=== PATIENT | male | born 1965 | race Caucasian/White ===

== ENCOUNTER → 2017-08-20 | Outpatient (REF) | payer BC, OTHER ==
[2017-08-23 00:06] LABS: Lyme Disease IgG/IgM Antibodie <0.91 ISR (0.00-0.90); Lyme Disease IgM Ab Quantitati <0.80 index (0.00-0.79)
== END ==
LOC: M LAB REF 16:09
DX: G51.0 Bell's palsy (principal)
CPT/HCPCS: 86617

== ENCOUNTER → 2018-01-14 | Outpatient (CLI) | payer BC, OTHER | LOC: M RAD 10:57 | DX: T15.01XA Foreign body in cornea, right eye, initial encounter (principal); W18.30XA Fall on same level, unspecified, initial encounter; Y92.009 Unspecified place in unspecified non-institutional (private) residence as the place of occurrence of the external cause | CPT/HCPCS: 70030 ==

== ENCOUNTER → 2018-08-29 | Outpatient (REF) | payer BC, OTHER ==
[2018-08-31 08:06] LABS: LDL DIRECT 64 mg/dL (0-99)
== END ==
LOC: M LAB REF 16:45
PROVIDERS: ATTEND Nurse Practitioner Adult Health
DX: E78.00 Pure hypercholesterolemia, unspecified (principal)

== ENCOUNTER → 2019-05-05 | Outpatient (REF) | payer BC, OTHER | LOC: M LAB REF 12:40 | PROVIDERS: ATTEND Nurse Practitioner Adult Health | DX: E29.1 Testicular hypofunction (principal) ==

== ENCOUNTER → 2019-08-05 | Outpatient (REF) | payer BC, OTHER ==
[2019-08-09 00:08] LABS: TESTOSTERONE FREE (DIRECT) 11.1 pg/mL (7.2-24.0)
== END ==
LOC: M LAB REF 12:53
PROVIDERS: ATTEND Nurse Practitioner Adult Health
DX: E29.1 Testicular hypofunction (principal)

== ENCOUNTER → 2020-10-05 | Outpatient (REF) | payer BC, OTHER ==
[2020-10-06 17:06] LABS: TESTOSTERONE FREE (DIRECT) 11.4 pg/mL (7.2-24.0)
== END ==
LOC: M LAB REF 12:06
PROVIDERS: ATTEND Nurse Practitioner Adult Health
DX: N52.9 Male erectile dysfunction, unspecified (principal)

== ENCOUNTER → 2021-04-12 | Outpatient (REF) | payer BC, OTHER ==
[2021-04-14 20:07] LABS: TESTOSTERONE FREE (DIRECT) 9.2 pg/mL (7.2-24.0)
== END ==
LOC: M LAB REF 16:39
PROVIDERS: ATTEND Nurse Practitioner Adult Health
DX: E29.1 Testicular hypofunction (principal)

== ENCOUNTER → 2022-02-01 | Outpatient (REF) | payer BC, OTHER | LOC: M LAB REF 16:08 | PROVIDERS: ATTEND Nurse Practitioner Adult Health | DX: E29.1 Testicular hypofunction (principal) ==

== ENCOUNTER → 2023-05-16 | Outpatient (CLI) | payer BC ==
[~2023-05-16] MED LIST: AMLO1TAB25 PO; ATOR40TA75 PO; ENAL1TAB52 PO; FINE20TA PO; FLUO20CA22 PO; HYDR-3490 PO; INSU100I24 SQ; METF-838 PO; METO1TAB33 PO; OMEP-173 PO; POTA-151 PO; TRES1INJ SQ; TRUL0.5I SQ
== END ==
LOC: M PLAIMG 09:04
PROVIDERS: ATTEND Physician Assistant
DX: R91.1 Solitary pulmonary nodule (principal)